=== PATIENT | female | born 1955 | race Caucasian/White ===

== ENCOUNTER 2017-11-29 18:07 | Observation (INO) | payer OTHER ==
[2017-11-29] VITALS (7 sets, daily range): BP systolic 128–144; BP diastolic 76–84
[~2017-11-29] VITALS: Ht 152.4 cm; Wt 93.9 kg
[~2017-11-29 18:07] MED LIST: MECL-124 PO; ONDN4T PO; OXYC-109 PO; PROGEST; PRX10T PO; SCOP1PAT TD; TESTO
--- OUTSIDE RECORDS SUMMARY | 2017-11-29 18:12 | XMS REPORT | Continuity of Care Document ---
Author Author [facility] Organization [facility] Address Unknown Phone Unavailable Allergies There is no data. Medications There is no data. Problems There is no data. Procedures There is no data. Results There is no data. Encounters ACCT No. Visit Date/Time Discharge Status Pt. Type Provider Facility Loc./Unit Complaint [id number] 11/21/2013 21:57:00 11/24/2013 12:15:00 DIS Inpatient
[2017-11-29] MEDS ORDERED: NITROGLYCERIN 0.4 MG SL TABS BTL 25'S SL ONE (18:56)
[2017-11-29] MEDS ORDERED: ONDANSETRON 4 MG/2 ML (SDV) Z0FRAN IVP ONE ×2 (19:15→19:30)
[2017-11-29 19:21] LABS: BASOPHILS # (AUTO) 0.1 10^3/uL (0.0-0.1); BASOPHILS % (AUTO) 0 % (0-10); EOSINOPHILS % (AUTO) 0 % (0-10); HEMATOCRIT 40 % (35-52); HEMOGLOBIN 13.2 G/DL (11.5-16.0); LYMPHOCYTES # (AUTO) 2.4 X 10^3 (1.0-4.0); LYMPHOCYTES % (AUTO) 19 % (12-44); MEAN CORPUSCULAR HEMOGLOBIN 29 PG (25-34); MEAN CORPUSCULAR HGB CONC 33 G/DL (32-36); MEAN CORPUSCULAR VOLUME 89 FL (80-99); MEAN PLATELET VOLUME 10.6 FL (7.4-10.4); MONOCYTES # (AUTO) 0.4 X 10^3 (0.0-1.0); MONOCYTES % (AUTO) 3 % (0-12); NEUTROPHILS # (AUTO) 9.8 X 10^3 (1.8-7.8); NEUTROPHILS % (AUTO) 78 % (42-75); PLATELET COUNT 336 10^3/uL (130-400); RED BLOOD COUNT 4.51 10^6/uL (4.35-5.85); RED CELL DISTRIBUTION WIDTH 14.1 % (10.0-14.5); WHITE BLOOD COUNT 12.6 10^3/uL (4.3-11.0)
--- NOTE | 2017-11-29 19:23 | Diagnostic Imaging Report ---
INDICATION: Chest pain. COMPARISON is made with a prior study from 11/21/2013. FINDINGS: When compared to the prior examination, there appear to be some new patchy infiltrates at the right lung base. The left lung remains clear. There is no effusion. There is no pneumothorax. Heart size appears stable. Pulmonary vascularity is unremarkable. There is no acute osseous abnormality IMPRESSION: 1. Small region of new right base atelectasis or infiltrate. Dictated by: Dictated on workstation # [id number]
[2017-11-29 19:44] LABS: INR 0.9 (0.8-1.4); PROTHROMBIN TIME PATIENT 12.5 SEC (12.2-14.7)
[2017-11-29 19:46] LABS: ALANINE AMINOTRANSFERASE 59 U/L (0-55); ALBUMIN 4.3 GM/DL (3.2-4.5); ALKALINE PHOSPHATASE 91 U/L (40-136); BILIRUBIN,TOTAL 0.6 MG/DL (0.1-1.0); BUN/CREATININE RATIO 23; CALCIUM 9.4 MG/DL (8.5-10.1); CARBON DIOXIDE 26 MMOL/L (21-32); CHLORIDE 105 MMOL/L (98-107); GFR ESTIMATED > 60; GLUCOSE 121 MG/DL (70-105); MAGNESIUM 2.1 MG/DL (1.8-2.4); POTASSIUM 3.6 MMOL/L (3.6-5.0); SODIUM 142 MMOL/L (135-145); TOTAL PROTEIN 7.7 GM/DL (6.4-8.2)
[2017-11-29 19:53] LABS: MYOGLOBIN SERUM 102.7 NG/ML (10.0-92.0)
[2017-11-29] MEDS ORDERED: AZITHROMYCIN INJECTION 500 MG in NS (IVPB) 250 ML IV ONE (20:30)
--- NOTE | 2017-11-29 21:09 | ED Chest Pain ---
General Chief Complaint: Chest Pain Stated Complaint: BODY CHILLS,HIGH BP,LT SHOULDER PAIN,ANXIETY Nursing Triage Note: PT STATES HX OF HYPERTENSION, STATES CHEST PAIN AND NAUSEA. Nursing Sepsis Screen: No Definite Risk Source: patient Exam Limitations: no limitations History of Present Illness Time seen by provider: 18:52 Initial Comments Ms. Hanson presents to the emergency room with complaints of palpitations and chest pressure since about lunchtime. Location is in the left upper chest and she rates the discomfort as 4/10. She has had associated sweats and vomiting. She states she "doesn't feel right". Blood pressure at home was 186/110. She is still hypertensive now. She denies any history of heart problems. She presumed recently that she had influenza has her granddaughter tested positive for influenza A. She had a cough and sore throat in recent weeks treated with steroids, inhalers, and Flonase. Those symptoms seem to have improved. Her pain does not seem to be alleviated or exacerbated by anything in particular. Allergies and Home Medications Allergies Coded Allergies: Penicillins (Unverified Allergy, Mild, 11/28/08) Sulfa (Sulfonamide Antibiotics) (Unverified Allergy, Mild, 11/28/08) amoxicillin (Unverified Allergy, Mild, 11/28/08) aspirin (Unverified Allergy, Mild, 11/28/08) levofloxacin (Unverified Allergy, Mild, 11/28/08) potassium clavulanate (Unverified Allergy, Mild, 11/28/08) Home Medications Paroxetine HCl 10 Mg Tablet, 15 MG PO DAILY, (Reported) The patient takes 1 and 1/2 tabs daily Review of Systems Constitutional: see HPI, diaphoresis EENTM: No Symptoms Reported Respiratory: See HPI Cardiovascular: See HPI Gastrointestinal: See HPI Genitourinary: No Symptoms Reported Musculoskeletal: no symptoms reported Skin: no symptoms reported Psychiatric/Neurological: No Symptoms Reported Endocrine: No Symptoms Reported Hematologic/Lymphatic: No Symptoms Reported Past Xeijctq-Pxfdji-Dtnttg Hx Patient Social History Alcohol Use: Denies Use Recreational Drug Use: No Smoking Status: Former Smoker Type Used: Cigarettes Former Smoker, Quit: Nov 14, 2003 Recent Foreign Travel: No Contact w/Someone Who Travel: No Recent Infectious Disease Expo: No Recent Hopitalizations: No Immunizations Up To Date Date of Influenza Vaccine: Jul 20, 2017 Seasonal Allergies Seasonal Allergies: Yes Surgeries History of Surgeries: Yes (LAMINECTOMY, GANGLION CYST REMOVAL FROM L WRIST) Surgeries: Adenoidectomy, Breast (biopsy), Section, Gallbladder, Hysterectomy, Orthopedic (ganglion cyst, carpal tunnel), Tonsillectomy Respiratory History of Respiratory Disorde: No Cardiovascular History of Cardiac Disorders: No Neurological History of Neurological Disord: No Reproductive System : No Hx Reproductive Disorders: No Sexually Transmitted Disease: No HIV/AIDS: No Genitourinary History of Genitourinary Disor: Yes Genitourinary Disorders: UTI-Chronic Gastrointestinal History of Gastrointestinal Di: Yes Gastrointestinal Disorders: Pancreatitis Musculoskeletal History of Musculoskeletal Dis: No Endocrine History of Endocrine Disorders: No HEENT History of HEENT Disorders: No Cancer History of Cancer: No Psychosocial History of Psychiatric Problem: Yes Behavioral Health Disorders: Anxiety Integumentary History of Skin or Integumenta: No Blood Transfusions History of Blood Disorders: No Adverse Reaction to a Blood Tr: No Family Medical History Significant Family History: Heart Disease, Cancer, Hypertension, Renal Disease , Stroke Family Medial History: Cancer (Breast) 03 MOTHER, Onset:Unknown Congenital heart disease Paternal Grandmother, Onset:Unknown Family history: Hypertension 03 FATHER, Onset:Unknown Kidney disease Paternal Grandmother, Onset:Unknown Stroke 03 MOTHER, Onset:Unknown Physical Exam Vital Signs Vital Sign - Last 12Hours Capillary Refill : Less Than 3 Seconds General Appearance: WD/WN, Mild Distress, Obese HEENT: PERRL/EOMI, Normal ENT Inspection Neck: Normal Inspection Respiratory: Chest Non Tender, Lungs Clear, Normal Breath Sounds, No Accessory Muscle Use, No Respiratory Distress Cardiovascular: Regular Rate, Rhythm, No Edema, No Murmur, Normal Peripheral Pulses Gastrointestinal: Normal Bowel Sounds, Non Tender, Soft Extremity: Normal Inspection, Non Tender, No Calf Tenderness, No Pedal Edema, Other (negative Janine) Neurologic/Psychiatric: Alert, Oriented x3, No Motor/Sensory Deficits, Normal Mood/Affect, 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 Skin: Normal Color, Warm/Dry Progress/Results/Core Measures Results/Orders Lab Results Laboratory Tests Test 11/29/17 18:51 Range/Units White Blood Count 12.6 H 4.3-11.0 10^3/uL Red Blood Count 4.51 4.35-5.85 10^6/uL Hemoglobin 13.2 11.5-16.0 G/DL Hematocrit 40 35-52 % Mean Corpuscular Volume 89 80-99 FL Mean Corpuscular Hemoglobin 29 25-34 PG Mean Corpuscular Hemoglobin Concent 33 32-36 G/DL Red Cell Distribution Width 14.1 10.0-14.5 % Platelet Count 336 130-400 10^3/uL Mean Platelet Volume 10.6 H 7.4-10.4 FL Neutrophils (%) (Auto) 78 H 42-75 % Lymphocytes (%) (Auto) 19 12-44 % Monocytes (%) (Auto) 3 0-12 % Eosinophils (%) (Auto) 0 0-10 % Basophils (%) (Auto) 0 0-10 % Neutrophils # (Auto) 9.8 H 1.8-7.8 X 10^3 Lymphocytes # (Auto) 2.4 1.0-4.0 X 10^3 Monocytes # (Auto) 0.4 0.0-1.0 X 10^3 Eosinophils # (Auto) 0.0 0.0-0.3 10^3/uL Basophils # (Auto) 0.1 0.0-0.1 10^3/uL Prothrombin Time 12.5 12.2-14.7 SEC INR Comment 0.9 0.8-1.4 Activated Partial Thromboplast Time 35 24-35 SEC Sodium Level 142 135-145 MMOL/L Potassium Level 3.6 3.6-5.0 MMOL/L Chloride Level 105 98-107 MMOL/L Carbon Dioxide Level 26 21-32 MMOL/L Anion Gap 11 5-14 MMOL/L Blood Urea Nitrogen 18 7-18 MG/DL Creatinine 0.80 0.60-1.30 MG/DL Estimat Glomerular Filtration Rate > 60 BUN/Creatinine Ratio 23 Glucose Level 121 H 70-105 MG/DL Calcium Level 9.4 8.5-10.1 MG/DL Magnesium Level 2.1 1.8-2.4 MG/DL Total Bilirubin 0.6 0.1-1.0 MG/DL Aspartate Amino Transf (AST/SGOT) 39 H 5-34 U/L Alanine Aminotransferase (ALT/SGPT) 59 H 0-55 U/L Alkaline Phosphatase 91 40-136 U/L Myoglobin 102.7 H 10.0-92.0 NG/ML Troponin I < 0.30 <0.30 NG/ML C-Reactive Protein High Sensitivity 1.56 H 0.00-0.50 MG/DL Total Protein 7.7 6.4-8.2 GM/DL Albumin 4.3 3.2-4.5 GM/DL Micro Results Microbiology 11/29/17 Influenza Types A,B Antigen (EVERT) - Final, Complete My Orders Orders - NELSON GALLAGHER MD Cbc With Automated Diff (11/29/17 18:56) Magnesium (11/29/17 18:56) Chest 1 View, Ap/Pa Only (11/29/17 18:56) Ekg Tracing (11/29/17 18:56) Cardiac Profile 1 (11/29/17 18:56) Comprehensive Metabolic Panel (11/29/17 18:56) Myoglobin Serum (11/29/17 18:56) Protime With Inr (11/29/17 18:56) Partial Thromboplastin Time (11/29/17 18:56) O2 (11/29/17 18:56) Monitor-Rhythm Ecg Trace Only (11/29/17 18:56) Lipid Panel (11/30/17 06:00) Saline Lock/Iv-Start (11/29/17 18:56) Nitroglycerin 0.4 Mg Btl 25's (Nitrostat (11/29/17 18:56) Ondansetron Injection (Zofran Injectio (11/29/17 19:15) Influenza A And B Antigens (11/29/17 19:09) Ondansetron Injection (Zofran Injectio (11/29/17 19:30) Blood Culture (11/29/17 20:17) Azithromycin Injection (Zithromax Inject (11/29/17 20:30) Hs C Reactive Protein (11/29/17 20:18) Aspirin Chewable Tablet (Baby Aspirin Ch (11/29/17 21:15) Medications Given in ED Vital Signs/I&O Vital Sign - Last 12Hours 11/29/17 11/29/17 18:48 18:48 Temp 98.2 Pulse 91 Resp 20 B/P (MAP) 176/93 (120) Pulse Ox 99 O2 Delivery Room Air Room Air Blood Pressure Mean: 120 Progress Note : Progress Note Patients pain and blood pressure improved with nitro. Chest x-ray revealed a possible right lower lobe pneumonia. Blood culture was drawn and Azithromycin was initiated. ASA was given. Vomitng was treated with Zofran. Case was reviewed with Dr. Camarillo who agreed it was most appropriate to admit this patient for cardiac rule out. ECG Initial ECG Impression Date: Nov 29, 2017 Initial ECG Impression Time: 18:50 Initial ECG Rate: 77 Initial ECG Rhythm: Normal Sinus Initial ECG Intervals: Normal Initial ECG Impression: Normal Comment Normal sinus rhythm with no ST elevation or depression. No abnormal intervals or axis deviation. Diagnostic Imaging Diagonstic Imaging: Xray Plain Films/CT/US/NM/MRI: chest Comments Chest x-ray viewed by me and report reviewed. See report below: NAME: CONSUELO HANSON MED REC#: [id number] PT STATUS: REG ER : 1955 PHYSICIAN: NELSON GALLAGHER MD ADMIT DATE: 11/29/17/ER Signed Date of Exam: 11/29/17 CHEST 1 VIEW, AP/PA ONLY INDICATION: Chest pain. COMPARISON is made with a prior study from 11/21/2013. FINDINGS: When compared to the prior examination, there appear to be some new patchy infiltrates at the right lung base. The left lung remains clear. There is no effusion. There is no pneumothorax. Heart size appears stable. Pulmonary vascularity is unremarkable. There is no acute osseous abnormality IMPRESSION: 1. Small region of new right base atelectasis or infiltrate. Dictated by: Dictated on workstation # [id number] Dict: 11/29/171917 Trans: 11/29/171928 Interpreted by: NASRIN NIETO MD Electronically signed by: NASRIN NIETO MD 11/29/171928 Departure Communication (Admissions) Time/Spoke to Admitting Phy: 20:[address] Rush Time/Spoke to Consulting Phy: 21:06 Communication/Consulting Dr. Camarillo Impression Impression: Primary Impression: Chest pain Qualified Codes: R07.9 - Chest pain, unspecified Additional Impressions: Hypertension Qualified Codes: I10 - Essential (primary) hypertension Right lower lobe pneumonia Qualified Codes: J18.1 - Lobar pneumonia, unspecified organism Nausea & vomiting Qualified Codes: R11.2 - Nausea with vomiting, unspecified Disposition: ADMITTED INPATIENT Condition: Improved Admissions Decision to Admit Reason: Admit from ER (General) Decision to Admit/Date: Nov 30, 2017 Time/Decision to Admit Time: 20:30 Departure-Patient Inst. Referrals: LISETTE HEATH MD (PCP/Family) Primary Care Physician NELSON GALLAGHER MD Nov 29, 2017 21:08
[2017-11-29] MEDS ORDERED: ASPIRIN 81 MG CHEW (CHILDREN'S ASA) PO ONE (21:15)
--- OUTSIDE RECORDS SUMMARY | 2017-11-29 21:38 | XMS REPORT | Continuity of Care Document ---
Author Author [facility] Organization [facility] Address Unknown Phone Unavailable Allergies There is no data. Medications There is no data. Problems There is no data. Procedures There is no data. Results Test Result Range Complete blood count (CBC) with automated white blood cell (WBC) differential - 11/29/17 18:51 Blood leukocytes automated count (number/volume) 12.6 10*3/uL 4.3-11.0 Blood erythrocytes automated count (number/volume) 4.51 10*6/uL 4.35-5.85 Venous blood hemoglobin measurement (mass/volume) 13.2 g/dL 11.5-16.0 Blood hematocrit (volume fraction) 40 % 35-52 Automated erythrocyte mean corpuscular volume 89 [foz_us] 80-99 Automated erythrocyte mean corpuscular hemoglobin (mass per erythrocyte) 29 pg 25-34 Automated erythrocyte mean corpuscular hemoglobin concentration measurement ( mass/volume) 33 g/dL 32-36 Automated erythrocyte distribution width ratio 14.1 % 10.0-14.5 Automated blood platelet count (count/volume) 336 10*3/uL 130-400 Automated blood platelet mean volume measurement 10.6 [foz_us] 7.4-10.4 Automated blood neutrophils/100 leukocytes 78 % 42-75 Automated blood lymphocytes/100 leukocytes 19 % 12-44 Blood monocytes/100 leukocytes 3 % 0-12 Automated blood eosinophils/100 leukocytes 0 % 0-10 Automated blood basophils/100 leukocytes 0 % 0-10 Blood neutrophils automated count (number/volume) 9.8 10*3 1.8-7.8 Blood lymphocytes automated count (number/volume) 2.4 10*3 1.0-4.0 Blood monocytes automated count (number/volume) 0.4 10*3 0.0-1.0 Automated eosinophil count 0.0 10*3/uL 0.0-0.3 Automated blood basophil count (count/volume) 0.1 10*3/uL 0.0-0.1 Comprehensive metabolic panel - 11/29/17 18:51 Serum or plasma sodium measurement (moles/volume) 142 mmol/L 135-145 Serum or plasma potassium measurement (moles/volume) 3.6 mmol/L 3.6-5.0 Serum or plasma chloride measurement (moles/volume) 105 mmol/L 98-107 Carbon dioxide 26 mmol/L 21-32 Serum or plasma anion gap determination (moles/volume) 11 mmol/L 5-14 Serum or plasma urea nitrogen measurement (mass/volume) 18 mg/dL 7-18 Serum or plasma creatinine measurement (mass/volume) 0.80 mg/dL 0.60-1.30 Serum or plasma urea nitrogen/creatinine mass ratio 23 NRG Serum or plasma creatinine measurement with calculation of estimated glomerular filtration rate > NRG Serum or plasma glucose measurement (mass/volume) 121 mg/dL 70-105 Serum or plasma calcium measurement (mass/volume) 9.4 mg/dL 8.5-10.1 Serum or plasma total bilirubin measurement (mass/volume) 0.6 mg/dL 0.1-1.0 Serum or plasma alkaline phosphatase measurement (enzymatic activity/volume) 91 U/L 40-136 Serum or plasma aspartate aminotransferase measurement (enzymatic activity/ volume) 39 U/L 5-34 Serum or plasma alanine aminotransferase measurement (enzymatic activity/volume ) 59 U/L 0-55 Serum or plasma protein measurement (mass/volume) 7.7 g/dL 6.4-8.2 Serum or plasma albumin measurement (mass/volume) 4.3 g/dL 3.2-4.5 Magnesium - 11/29/17 18:51 Magnesium 2.1 mg/dL 1.8-2.4 PT panel in platelet poor plasma by coagulation assay - 11/29/17 18:51 Prothrombin time (PT) in platelet poor plasma by coagulation assay 12.5 s 12.2-14.7 INR in platelet poor plasma or blood by coagulation assay 0.9 0.8-1.4 Activated partial thromboplastin time (aPTT) in platelet poor plasma bycoagulation assay - 11/29/17 18:51 Activated partial thromboplastin time (aPTT) in platelet poor plasma bycoagulation assay 35 s 24-35 Serum or plasma troponin i.cardiac measurement (mass/volume) - 11/29/17 18:51 Serum or plasma troponin i.cardiac measurement (mass/volume) < ng/ mL <0.30 Myoglobin, serum - 11/29/17 18:51 Myoglobin, serum 102.7 ng/mL 10.0-92.0 Serum or plasma C reactive protein measurement (mass/volume) - 11/29/17 18:51 Serum or plasma C reactive protein measurement (mass/volume) 1.56 mg /dL 0.00-0.50 Influenza virus A and B antigen detection - 11/29/17 19:15 FLU RESULT NEGATIVE FOR INFLUENZA A AND B ANTIGENS BY IA NRG Encounters ACCT No. Visit Date/Time Discharge Status Pt. Type Provider Facility Loc./Unit Complaint [id number] 11/21/2013 21:57:00 11/24/2013 12:15:00 DIS Inpatient [id number] 11/29/2017 19:27:00 Document Registration
[2017-11-29] MEDS ORDERED: NITROGLYCERIN 0.4 MG SL TABS BTL 25'S SL PRN (22:15)
[2017-11-29] MEDS ORDERED: ONDANSETRON 4 MG/2 ML (SDV) Z0FRAN IV PRN (22:15)
[2017-11-29] MEDS ORDERED: morphine INJ 4 MG/ML 1 ML (VIAL/SYRINGE) IV PRN (22:15)
[2017-11-29] MEDS ORDERED: RT-ALBUTEROL/IPRATROPIUM 3 ML (DUONEB) VIAL INH PRN (23:45)
[2017-11-30] VITALS (11 sets, daily range): BP systolic 121–155; BP diastolic 57–80
[2017-11-30 05:32] LABS: CHOLESTEROL 214 MG/DL (< 200); HDL CHOLESTEROL 46 MG/DL (40-60)
[2017-11-30 06:02] LABS: TRIGLYCERIDES 92 MG/DL (<150); VLDL CHOLESTEROL 18 MG/DL (5-40)
[2017-11-30] MEDS: RT-ALBUTEROL/IPRATROPIUM 3 ML (DUONEB) VIAL INH SCH ×3 (07:10→19:37)
[2017-11-30] MEDS: AZITHROMYCIN 250 MG TAB (ZITHROMAX) PO SCH (09:08)
[2017-11-30] MEDS: ASPIRIN E.C. 325 MG (ECOTRIN) TABLET PO SCH (09:08)
[2017-11-30] MEDS ORDERED: PARO10TA81 PO (09:11)
--- NOTE | 2017-11-30 11:33 | Consultation-Cardiology ---
HPI-Cardiology Cardiology Consultation: Date of Consultation 11/30/17 Date of Admission Attending Physician Isaiah Rush MD Admitting Physician Omar Fung MD Consulting Physician Juliette CAMARILLO MD HPI: Time Seen by Provider: 09:40 Chief Complaint: Chest pain This is a 62-year-old lady who presents with episode of chest pain associated with nausea and vomiting. She was found to have a lung infiltrate and his been treated as pneumonia. She has family history of coronary artery disease. She is a new onset hypertension. She does not know whether she has hypercholesterolemia or not. She denies diabetes. The chest pain was central moderate intensity. Not associated with any significant radiation. No exacerbating factors. However she had mild relief with nitroglycerin. She had associated nausea and vomiting. Review of Systems-Cardiology Review of Systems Constitutional: No As described under HPI, No no symptoms reported, No chills, No fever, No lightheadedness, No malaise, No tiredness, No weight loss, No weight gain, No other Eyes: No As described under HPI, No no symptoms reported, No blindness, No blurred vision, No contact lenses, No drainage, No decreased acuity, No foreign body sensation, No glasses, No inflammation, No pain, No photophobia, No previous injury, No shadows, No tunnel vision, No other, No vision change Ears/Nose/Throat: No As described under HPI, No no symptoms reported, No chronic hearing loss, No epistaxis, No ear discharge, No ear pain, No loose teeth, No mouth pain, No mouth swelling, No nasal drainage, No nose pain, No recent hearing loss, No throat pain, No throat swelling, No ulcerations, No other Respiratory: No no symptoms reported, No As described under HPI, No cough, No orthopnea, No shortness of breath, No SOB with excertion, No SOB at rest, No stridor, No wheezing, No other Cardiovascular: chest pain Gastrointestinal: nausea, vomiting Genitourinary: No no symptoms reported, No As described under HPI, No burning, No dysuria, No discharge, No frequency, No flank pain, No hematuria, No incontinence, No pain, No urgency, No other, No urine frequency changes, No urine coloration changes Musculoskeletal: No no symptoms reported, No As describe under HPI, No back pain, No gout, No joint pain, No joint swelling, No muscle pain, No muscle stiffness, No neck pain, No other Skin: No no symptoms reported, No As described under HPI, No change in color, No change in hair/nails, No dryness, No lesions, No lumps, No rash, No other, No skin related problems, No ulcerations, No rash on exposed areas, No ulcerations on exposed areas Psychiatric/Neurological: No no symptoms reported, No As described under HPI, No anxiety, No depression, No emotional problems, No headache, No numbness, No pre-existing deficit, No seizure, No tingling, No tremors, No weakness, No other , No focal weakness, No syncope Hematologic: No no symptoms reported, No As described under HPI, No anemia, No blood clots, No easy bleeding, No easy bruising, No swollen glands, No other, No bleeding abnormalities [id number] Hx Patient Social History Alcohol Use: Denies Use Recreational Drug Use: No Smoking Status: Former Smoker Type Used: Cigarettes Recent Foreign Travel: No Recent Infectious Disease Expo: No Physical Abuse Screen: No Sexual Abuse: No Immunizations Up To Date Date of Influenza Vaccine: Jul 20, 2017 Past Medical History PMH As described under Assessment. Family Medical History Family History: Cancer (Breast) 03 MOTHER, Onset:Unknown Congenital heart disease Paternal Grandmother, Onset:Unknown Family history: Hypertension 03 FATHER, Onset:Unknown Kidney disease Paternal Grandmother, Onset:Unknown Stroke 03 MOTHER, Onset:Unknown Allergies and Home Medications Allergies Coded Allergies: Penicillins (Unverified Allergy, Mild, 11/28/08) Sulfa (Sulfonamide Antibiotics) (Unverified Allergy, Mild, 11/28/08) amoxicillin (Unverified Allergy, Mild, 11/28/08) aspirin (Unverified Allergy, Mild, 11/28/08) levofloxacin (Unverified Allergy, Mild, 11/28/08) potassium clavulanate (Unverified Allergy, Mild, 11/28/08) Home Medications Paroxetine HCl 10 Mg Tablet, 15 MG PO DAILY, (Reported) The patient takes 1 and 1/2 tabs daily Physical Exam-Cardiology Physical Exam Vital Signs/I&O Vital Sign - Last 12Hours 11/29/17 11/29/17 11/30/17 11/30/17 23:56 23:58 01:00 01:00 Temp 97.1 97.1 Pulse 72 63 63 Resp 18 20 B/P (MAP) 132/84 (100) 121/77 (92) Pulse Ox 97 97 O2 Delivery Room Air Room Air Room Air 11/30/17 11/30/17 11/30/17 11/30/17 02:05 03:01 03:55 03:55 Temp 97.1 98.2 97.6 Pulse 69 74 68 Resp 18 16 18 B/P (MAP) 140/65 (90) 137/75 (95) 126/74 (91) Pulse Ox 94 95 97 O2 Delivery Room Air Room Air Room Air Room Air 11/30/17 11/30/17 11/30/17 11/30/17 07:00 07:15 07:30 07:30 Pulse 70 Pulse Ox 96 O2 Delivery Room Air Room Air Room Air 11/30/17 11/30/17 07:30 11:13 Temp 98.1 Pulse 67 Resp 10 B/P (MAP) 129/79 (96) Pulse Ox 96 O2 Delivery Room Air Room Air Intake and Output 11/30/17 00:00 Intake Total 250 ml Output Total 0 ml Balance 250 ml Capillary Refill : Less Than 3 Seconds Constitutional: No appears stated age, No AAO x 3, No apparent distress, No PERRL, No well-developed, No well-nourished, No other HEENT: No PERRL, No normal ENT inspection, No TMs normal, No pharynx normal, No scleral icterus (R), No scleral icterus (L), No pale conjunctivae (R), No pale conjunctivae (L), No photophobia, No TM abnormal (R), No TM abnormal (L), No pharyngeal erythema, No tonsillar exudate, No other, No discharge, No EOMI, No hearing is well preserved, No hard of hearing, No oral hygience is good, No ulceration, No xanthelasmas are seen Neck: No non-tender, No full range of motion, No supple, No normal inspection, No carotid bruit, No limited range of motion, No lymphadenopathy (R), No lymphadenopathy (L), No tender lateral, No tender midline, No thyromegaly, No other, No carotid pulses are 2 + bilaterally, No with good upstrokes Respiratory: No accessory muscle use, No respiratory distress, No chest tender , No chest expansion is symmetric, No chest is bilaterally symmetric, No lungs clear to percussion, No lungs clear to auscultation, No crackles, No rhonchi, No rales, No stridor, No wheezing, No pleural rub, No other Cardiovascular: regular rate-rhythm, No irregularly irregular, No extra beats, No parasternal heave is noted, No JVD, No edema, No bradycardia, No tachycardia , No point of maximal impulse, No cardiac thrills are palpable, No S1 and S2, No gallop/S3, No gallop/S4, No diastolic murmur, No systolic murmur, No friction rub, No click, No other Gastrointestinal: No tender, No soft, No round, No distended, No pulsatile mass , No organomegaly, No guarding, No rebound, No tenderness, No hernia, No mass, No audible bowel sounds, No abnormal bowel sounds, No abdominal bruits, No spleenomegaly, No other Rectal: deferred Extremities: No normal range of motion, No non-tender, No normal inspection, No pedal edema, No calf tenderness, No normal capillary refill, No pelvis stable , No calf tenderness, No inflammation, No pedal edema, No slow capillary refill , No swelling, No other, No abrasion, No clubbing, No cyanosis, No ecchymosis, No laceration, No no lower extremity edema bilateral, No significant edema, No tenderness, No wound Neurologic/Psychiatric: No c d area supervisor II-XII nml as tested, No no motor/sensory deficits, No alert, No normal mood/affect, No oriented x 3, No abnormal cerebellar tests, No abnormal c d area supervisor II-XII, No abnormal gait, No aphasia, No EOM palsy, No facial droop, No motor weakness, No sensory deficit, No depressed affect, No disoriented x 3, No other, No grossly intact, No power is 5/5 both on sides Skin: No normal color, No warm/dry, No cyanosis, No cool, No diaphoresis, No damp, No ecchymosis, No jaundice, No mottled, No pallor, No rash, No tattoos/ piercings, No ulcerations, No rash on exposed areas, No ulcerations on exposed areas, No other Data Review Labs Laboratory Tests 11/29/17 18:51: White Blood Count 12.6H, Red Blood Count 4.51, Hemoglobin 13.2, Hematocrit 40, Mean Corpuscular Volume 89, Mean Corpuscular Hemoglobin 29, Mean Corpuscular Hemoglobin Concent 33, Red Cell Distribution Width 14.1, Platelet Count 336, Mean Platelet Volume 10.6H, Neutrophils (%) (Auto) 78H, Lymphocytes (%) (Auto) 19, Monocytes (%) (Auto) 3, Eosinophils (%) (Auto) 0, Basophils (%) (Auto) 0, Neutrophils # (Auto) 9.8H, Lymphocytes # (Auto) 2.4, Monocytes # (Auto) 0.4, Eosinophils # (Auto) 0.0, Basophils # (Auto) 0.1, Prothrombin Time 12.5, INR Comment 0.9, Activated Partial Thromboplast Time 35, Sodium Level 142, Potassium Level 3.6, Chloride Level 105, Carbon Dioxide Level 26, Anion Gap 11, Blood Urea Nitrogen 18, Creatinine 0.80, Estimat Glomerular Filtration Rate > 60 , BUN/Creatinine Ratio 23, Glucose Level 121H, Calcium Level 9.4, Magnesium Level 2.1, Total Bilirubin 0.6, Aspartate Amino Transf (AST/SGOT) 39H, Alanine Aminotransferase (ALT/SGPT) 59H, Alkaline Phosphatase 91, Myoglobin 102.7H, Troponin I < 0.30, C-Reactive Protein High Sensitivity 1.56H, Total Protein 7.7 , Albumin 4.3 11/30/17 01:00: Troponin I < 0.30 11/30/17 04:40: Triglycerides Level 92, Cholesterol Level 214H, LDL Cholesterol Direct 151H, VLDL Cholesterol 18, HDL Cholesterol 46 Microbiology 11/29/17 Influenza Types A,B Antigen (EVERT) - Final, Complete ECG Impression ECG Initial ECG Rhythm: Normal Sinus Initial ECG Impression: Nonspecific Changes A/P-Cardiology Assessment/Admission Diagnosis Chest pain, Nausea vomiting, Pneumonia, Hypertension, Hyperlipidemia Plan Chest pain: We'll request echocardiogram and pharmacological nuclear stress test. Nausea vomiting,: Unclear etiology Pneumonia: Defer to primary team. Hypertension: We'll start antihypertensives. Hyperlipidemia: Statin therapy. Thank you for your consultation. Please call me if you have any questions. Molly Camarillo MD, FACP, FACC, FSCAI, FHRS, CCDS Interventional Cardiology Cardiac Electrophysiology Vascular Medicine and Endovascular Interventions Clinical Quality Measures AMI/AHF: ASA po Prior to arrival: No DVT/VTE Risk/Contraindication: Risk Factor Score Per Nursin RFS Level Per Nursing on Admit: 4+=Very High Juliette CAMARILLO MD Nov 30, 2017 11:33
--- NOTE | 2017-11-30 12:13 | History & Physical-Hospitalist ---
HPI History of Present Illness: HPI/Chief Complaint CC: Chest pain HPI: This is a 62-year-old white female of Dr. Fung and Geoff Delcid who presents with episode of chest pain and RLL pneumonia. Azithromycin was initiated empirically considering her multiple medication allergies. She now is not experiencing any chest pain and has not since admission but she does have a stress test scheduled per cardiology to further risk stratify. She reports that she hasn't taking care of herself for a while and is requesting her Paxil to be restarted home medication. Source: patient Exam Limitations: no limitations Date Seen 11/30/17 Time Seen by Provider: 10:30 Attending Physician Isaiah Rush MD PCP Omar Fung MD Referring Physician Date of Admission Nov 29, 2017 at 21:11 Home Medications & Allergies Home Medications Reviewed patient Home Medication Reconciliation Form Allergies Allergies Coded Allergies Penicillins (Unverified Allergy, Mild, 11/28/08) Sulfa (Sulfonamide Antibiotics) (Unverified Allergy, Mild, 11/28/08) amoxicillin (Unverified Allergy, Mild, 11/28/08) aspirin (Unverified Allergy, Mild, 11/28/08) levofloxacin (Unverified Allergy, Mild, 11/28/08) potassium clavulanate (Unverified Allergy, Mild, 11/28/08) Past [id number] Hx Patient Social History Marrital Status: (3 yrs ago of cancer) Alcohol Use: Denies Use Recreational Drug Use: No Smoking Status: Former Smoker Former Smoker, Quit: Nov 14, 2003 Type Used: Cigarettes Physical Abuse Screen: No Sexual Abuse: No Recent Foreign Travel: No Contact w/other who traveled: No Recent Hopitalizations: No Recent Infectious Disease Expo: No Immunizations Up To Date Date of Influenza Vaccine: Jul 20, 2017 Seasonal Allergies Seasonal Allergies: Yes Surgeries Yes (LAMINECTOMY, GANGLION CYST REMOVAL FROM L WRIST, , hysterectomy) Adenoidectomy, Breast (biopsy), Section, Gallbladder, Hysterectomy, Orthopedic (ganglion cyst, carpal tunnel), Tonsillectomy Respiratory No Cardiovascular Yes High Cholesterol, Hypertension Neurological No Reproductive System : No Hx Reproductive Disorders: No Sexually Transmitted Disease: No HIV/AIDS: No Genitourinary Yes UTI-Chronic Gastrointestinal Yes Pancreatitis Musculoskeletal No Endocrine History of Endocrine Disorders: No HEENT History of HEENT Disorders: No Cancer No Psychosocial History of Psychiatric Problem: Yes Behavioral Health Disorders: Anxiety Integumentary History of Skin or Integumenta: No Blood Transfusions History of Blood Disorders: No Adverse Reaction to a Blood Tr: No Family Medical History Significant Family History: Heart Disease, Cancer, Hypertension, Renal Disease , Stroke Family Hx: Cancer (Breast) 03 MOTHER, Onset:Unknown Congenital heart disease Paternal Grandmother, Onset:Unknown Family history: Hypertension 03 FATHER, Onset:Unknown Kidney disease Paternal Grandmother, Onset:Unknown Stroke 03 MOTHER, Onset:Unknown Review of Systems Constitutional: see HPI, weakness EENTM: no symptoms reported Respiratory: cough Cardiovascular: chest pain Gastrointestinal: no symptoms reported Genitourinary: no symptoms reported Musculoskeletal: no symptoms reported Skin: no symptoms reported Psychiatric/Neurological: No Symptoms Reported All Other Systems Reviewed Negative Unless Noted: Yes Physical Exam Physical Exam Vital Signs Vital Sign - Last 12Hours Capillary Refill : Less Than 3 Seconds General Appearance: No Apparent Distress, WD/WN, Obese Eyes: Bilateral Eye Normal Inspection, Bilateral Eye PERRL HEENT: PERRL/EOMI, Normal ENT Inspection, Pharynx Normal Neck: Full Range of Motion, Normal Inspection, Non Tender, Supple, Carotid Bruit Respiratory: Chest Non Tender, Lungs Clear, Normal Breath Sounds, No Accessory Muscle Use, No Respiratory Distress Cardiovascular: Regular Rate, Rhythm, No Edema, No Gallop, No JVD, No Murmur, Normal Peripheral Pulses Gastrointestinal: Normal Bowel Sounds, No Organomegaly, No Pulsatile Mass, Non Tender, Soft Back: Normal Inspection, No CVA Tenderness, No Vertebral Tenderness Extremity: Normal Capillary Refill, Normal Inspection, Normal Range of Motion, Non Tender, No Calf Tenderness, No Pedal Edema Neurologic/Psychiatric: Alert, Oriented x3, No Motor/Sensory Deficits, Normal Mood/Affect Skin: Normal Color, Warm/Dry Lymphatic: No Adenopathy Results Results/Procedures Lab Laboratory Tests 11/29/17 18:51 Assessment/Plan Admission Diagnosis Assessment: Chest pain Small right lower lobe pneumonia without hypoxia elevated white count or fever Depression Assessment and Plan Plan: Azithromycin Cardiac stress test per cardiology Clinical Quality Measures AMI/AHF: ASA po Prior to arrival: No DVT/VTE Risk/Contraindication: Risk Factor Score Per Nursin RFS Level Per Nursing on Admit: 4+=Very High JUSTICE ANGULO DO Nov 30, 2017 12:13
[2017-11-30] MEDS ORDERED: PARoxetine 10 MG (PAXIL) TAB PO ONE (12:42)
[2017-11-30] MEDS ORDERED: REGADENOSON 0.4 MG/5 ML SYR (LEXISCAN) IV ONE ×2 (13:43→14:15)
[2017-11-30] MEDS ORDERED: ACETAMINOPHEN 325 MG TABLET/CAPLET (TYLENOL) PO PRN (17:00)
[2017-11-30] MEDS ORDERED: ATORVASTATIN 40 MG (LIPITOR) TABLET PO SCH (21:00)
[2017-12-01] VITALS: BP 128/68
[2017-12-01 04:30] VITALS: BP 119/73
[2017-12-01] MEDS: RT-ALBUTEROL/IPRATROPIUM 3 ML (DUONEB) VIAL INH SCH ×2 (06:36→10:53)
[2017-12-01 08:15] VITALS: BP 120/72
[2017-12-01] MEDS: ASPIRIN E.C. 325 MG (ECOTRIN) TABLET PO SCH (08:16)
[2017-12-01] MEDS: AZITHROMYCIN 250 MG TAB (ZITHROMAX) PO SCH (08:17)
[2017-12-01] MEDS ORDERED: PARoxetine 10 MG (PAXIL) TAB PO SCH (09:00)
[2017-12-01] MEDS ORDERED: lisINopril 5 MG (PRINIVIL) TABLET PO SCH (09:00)
--- NOTE | 2017-12-01 11:34 | STRESS TEST ---
DATE OF SERVICE: 11/30/2017 PHARMACOLOGICAL NUCLEAR STRESS ATTENDING PHYSICIAN: Dr. Isaiah Rush. PERFORMING PHYSICIAN: Dr. Molly Camarillo. DIAGNOSES: Chest pain, shortness of breath, pneumonia. PROCEDURE DETAILS: The patient was brought to the stress lab after informed consent was taken. Stress test was performed according to the Lexiscan protocol. A 0.4 mg of IV Lexiscan was given. Low grade exercise was performed. Baseline EKG showed sinus rhythm at 88 BPM. Blood pressure was 128/57 mmHg. Maximum heart rate was 125 BPM and blood pressure was 152/73 mmHg. 10.22 mCi of Myoview were given for rest imaging and 30.4 mCi of Myoview were given for stress imaging. TID was 1.02, EF 74%. Normal perfusion during rest and stress. CONCLUSION: 1. Pharmacological stress test, negative for ischemia. 2. Normal LV function with no wall motion abnormalities. 3. Normal perfusion during rest and stress. Job ID: [id number] DocumentID: [id number] Dictated Date: 12/01/2017 10:02:36 Product Support Engineer Date: 12/01/2017 10:56:30 Dictated By: BREN CAMARILLO MD
[2017-12-01] MEDS ORDERED: AZIT250T12 PO (11:36)
--- NOTE | 2017-12-01 11:39 | Discharge Summary-Hospitalist ---
Diagnosis/Chief Complaint Date of Admission Nov 29, 2017 at 21:11 Date of Discharge Discharge Date: Dec 01, 2017 Admission Diagnosis Assessment: Chest pain Small right lower lobe pneumonia without hypoxia elevated white count or fever Depression Discharge Diagnosis Evelyn is feeling good this morning. She was NPO following yesterdays stress test in case intervention was necessary but was allowed to eat this afternoon. She is not having any CP or palpitations. She does complain of being more worn out than usual but attributes this to her BP being normalized. ROS: Const- Feels improved from yesterday and ready to go home Resp- + non- productive cough, no SOB Cardiac- No CP. Denies palpitations GI- no abdominal pain. denies diarrhea. +BM MSK- no joint swelling or pain Psych- + depression and anxiety. PE: General- NAD. Comfortably lying in bed HEENT- non-traumatic, normocephalic, PERRLA Cardio- RRR, no murmurs rubs or gallops appreciated Resp- Even chest movement, CTAB GI- NTTP, no distention, +BS ++obese Ext- no LE swelling, FROM of all extremities Neuro- AOx3 Assessment: Chest pain Small right lower lobe pneumonia without hypoxia elevated white count or fever Depression Plan: D/C to home today. Continue azithromycin therapy and use OTC expectorant prn She will need f/u with cardiology in near future Discharge Summary Discharge Physical Examination Allergies: Coded Allergies: Penicillins (Unverified Allergy, Mild, 11/28/08) Sulfa (Sulfonamide Antibiotics) (Unverified Allergy, Mild, 11/28/08) amoxicillin (Unverified Allergy, Mild, 11/28/08) aspirin (Unverified Allergy, Mild, 11/28/08) levofloxacin (Unverified Allergy, Mild, 11/28/08) potassium clavulanate (Unverified Allergy, Mild, 11/28/08) Vitals & I&Os Vital Signs Date Time Temp Pulse Resp B/P (MAP) Pulse Ox O2 Delivery O2 Flow Rate FiO2 12/01/17 11:48 Room Air 12/01/17 11:48 98.9 79 18 137/67 (90) 94 Hospital Course Hospital course: patient had a brief hospital course. She was placed on abx and Nebs and Cardiology assessed her and performed EST. She was found to be stable for DC and will f/u with Dr Fung's office to work on optimizing her medical management and decreased further complications. Labs (last 24 hrs) Microbiology 11/29/17 Blood Culture - Preliminary, Resulted No growth 11/29/17 Influenza Types A,B Antigen (EVERT) - Final, Complete Discharge Home Medications: Active Scripts Active Lipitor (Atorvastatin Calcium) 40 Mg Tablet 40 Mg PO HS 60 Days Lisinopril 5 Mg Tablet 5 Mg PO DAILY 60 Days Aspirin EC (Aspirin) 325 Mg Tablet. 325 Mg PO DAILY 90 Days Azithromycin 250 Mg Tablet 250 Mg PO DAILY 2 Days Reported Paxil (Paroxetine HCl) 10 Mg Tablet 15 Mg PO DAILY The patient takes 1 and 1/2 tabs daily Instructions to patient/family Please see electronic discharge instructions given to patient. Clinical Quality Measures AMI/AHF: ASA po Prior to arrival: No DVT/VTE Risk/Contraindication: Risk Factor Score Per Nursin RFS Level Per Nursing on Admit: 4+=Very High JUSTICE ANGULO DO Dec 01, 2017 11:38
[2017-12-01 11:48] VITALS: BP 137/67
[2017-12-01] MEDS ORDERED: ATOR40TA PO (12:22)
[2017-12-01] MEDS ORDERED: LISI-556 PO (12:22)
[2017-12-01] MEDS ORDERED: ASPI325T32 PO (12:22)
[2017-12-01 13:45] VITALS: BP 137/67
--- NOTE | 2017-12-01 16:28 | Cardiology Progress Note ---
Cardiology SOAP Progress Note Subjective: no further chest pain. Objective: I&O/Vital Signs Vital Sign - Last 12Hours 12/01/17 12/01/17 12/01/17 12/01/17 04:30 06:36 07:00 08:15 Temp 98.1 97.7 Pulse 68 64 64 Resp 18 16 B/P (MAP) 119/73 (88) 120/72 (88) Pulse Ox 98 92 O2 Delivery Room Air Room Air Room Air 12/01/17 12/01/17 12/01/17 12/01/17 08:30 08:30 10:53 11:48 Temp 98.9 Pulse 79 Resp 18 B/P (MAP) 137/67 (90) Pulse Ox 92 95 94 O2 Delivery Room Air Room Air Room Air Room Air 12/01/17 12/01/17 11:48 13:45 Pulse 79 Resp 18 B/P (MAP) 137/67 Pulse Ox 94 O2 Delivery Room Air Room Air Intake and Output 12/01/17 00:00 Intake Total 450 ml Output Total 800 ml Balance -350 ml Weight (Pounds): 207 Weight (Ounces): 0.4 Weight (Calculated Kilograms): [id number] Constitutional: No appears stated age, No AAO x 3, No apparent distress, No PERRL, No well-developed, No well-nourished, No other Respiratory: No accessory muscle use, No respiratory distress, No chest tender , No chest expansion is symmetric, No chest is bilaterally symmetric, No lungs clear to percussion, No lungs clear to auscultation, No crackles, No rhonchi, No rales, No stridor, No wheezing, No pleural rub, No other Cardiovascular: regular rate-rhythm, No irregularly irregular, No extra beats, No parasternal heave is noted, No JVD, No edema, No bradycardia, No tachycardia , No point of maximal impulse, No cardiac thrills are palpable, No S1 and S2, No gallop/S3, No gallop/S4, No diastolic murmur, No systolic murmur, No friction rub, No click, No other Gastrointestional: No tender, No soft, No round, No distended, No pulsatile mass, No organomegaly, No guarding, No rebound, No tenderness, No hernia, No mass, No audible bowel sounds, No abnormal bowel sounds, No abdominal bruits, No spleenomegaly, No other Extremities: No normal range of motion, No non-tender, No normal inspection, No pedal edema, No calf tenderness, No normal capillary refill, No pelvis stable , No calf tenderness, No inflammation, No pedal edema, No slow capillary refill , No swelling, No other, No abrasion, No clubbing, No cyanosis, No ecchymosis, No laceration, No no lower extremity edema bilateral, No significant edema, No tenderness, No wound Neurologic/Psychiatric: No field sales agent II-XII nml as tested, No no motor/sensory deficits, No alert, No normal mood/affect, No oriented x 3, No abnormal cerebellar tests, No abnormal field sales agent II-XII, No abnormal gait, No aphasia, No EOM palsy, No facial droop, No motor weakness, No sensory deficit, No depressed affect, No disoriented x 3, No other, No grossly intact, No power is 5/5 both on sides Skin: No normal color, No warm/dry, No cyanosis, No cool, No diaphoresis, No damp, No ecchymosis, No jaundice, No mottled, No pallor, No rash, No tattoos/ piercings, No ulcerations, No rash on exposed areas, No ulcerations on exposed areas, No other Results/Procedures: Labs Microbiology 11/29/17 Blood Culture - Preliminary, Resulted No growth 11/29/17 Influenza Types A,B Antigen (EVERT) - Final, Complete A/P: Assessment/Dx: Chest pain, Nausea vomiting, Pneumonia, Hypertension, Hyperlipidemia Plan: Chest pain: acute coronary syndrome ruled out with negative serial troponin. Negative EKG. Echocardiogram was normal. Pharmacological stress test did not show any rest or stress perfusion defect. Nausea vomiting,: Unclear etiology Pneumonia: Defer to primary team. Hypertension: We'll start antihypertensives. Hyperlipidemia: Statin therapy. I can follow-up as an outpatient if required. Thank you for your consultation. Please call me if you have any questions. Molly Camarillo MD, FACP, FACC, FSCAI, FHRS, CCDS Interventional Cardiology Cardiac Electrophysiology Vascular Medicine and Endovascular Interventions Clinical Quality Measures AMI/AHF: ASA po Prior to arrival: Juliette Mccarty MD Dec 01, 2017 16:28
== END 2017-12-01 11:37 | disposition home or self-care (01) ==
LOC: EDUNIT# 18:07 → ER 18:09 → ICU 21:11 → UNDOADMOB 21:11 → ICU 21:40 → UNDODISOB 12-01 13:45
PROVIDERS: ADMIT Internal Medicine; ATTEND Internal Medicine
DX: R07.9 Chest pain, unspecified (principal); J18.9 Pneumonia, unspecified organism; R09.02 Hypoxemia; F32.9 Major depressive disorder, single episode, unspecified; Z88.0 Allergy status to penicillin; Z88.2 Allergy status to sulfonamides; Z88.1 Allergy status to other antibiotic agents; Z88.8 Allergy status to other drugs, medicaments and biological substances; Z88.6 Allergy status to analgesic agent; Z87.891 Personal history of nicotine dependence; I10 Essential (primary) hypertension; E78.00 Pure hypercholesterolemia, unspecified; F41.9 Anxiety disorder, unspecified; Z82.49 Family history of ischemic heart disease and other diseases of the circulatory system; R11.2 Nausea with vomiting, unspecified; Z79.899 Other long term (current) drug therapy
CPT/HCPCS: 36415; 71045; 78452; 80053; 80061; 83735; 83874; 84484; 85025; 85610; 85730; 86141; 87040; 87804; 93005; 93017; 93041; 93306; 94640; 94760; 96365; 96375

== ENCOUNTER → 2017-12-16 | Outpatient (CLI) | payer OTHER ==
[~2017-12-16] MED LIST changes: +ASPI325T32 PO; +ATOR40TA PO; +AZIT250T12 PO; +LISI-556 PO; +PARO10TA81 PO
--- NOTE | 2017-12-16 12:51 | Diagnostic Imaging Report ---
Indication: Routine screening. Comparison is made with prior mammogram from 04/25/2007. The current study was also evaluated with a Computer Aided Detection (CAD) system. Scattered fibroglandular densities are identified bilaterally. No dominant mass or malignant appearing microcalcifications are seen. The axilla are unremarkable. Impression: BI-RADS category one No mammographic features suspicious for malignancy are identified. ACR BI-RADS Category 1: Negative. Result letter will be mailed to the patient. Note: At least 10% of breast cancer is not imaged by mammography. Dictated by: Dictated on workstation # [id number]
== END ==
LOC: RAD 09:53
PROVIDERS: ATTEND Internal Medicine
DX: Z12.31 Encounter for screening mammogram for malignant neoplasm of breast (principal)
CPT/HCPCS: 77067

== ENCOUNTER 2018-01-27 05:37 | Outpatient (CLI) | payer OTHER ==
[~2018-01-27] VITALS: Ht 152.4 cm; Wt 86.2 kg
== END 2018-01-27 15:42 ==
LOC: PREOP 05:37
PROVIDERS: ATTEND Specialist
DX: Z01.818 Encounter for other preprocedural examination (principal); H25.89 Other age-related cataract

== ENCOUNTER 2018-02-03 06:21 | Day surgery (SDC) | payer OTHER ==
[~2018-02-03] VITALS: Ht 152.4 cm; Wt 86.2 kg
[2018-02-03 06:27] VITALS: BP 154/85
[2018-02-03] MEDS ORDERED: VANCOMYCIN/BSS (COMPOUNDED) 10 MG/ML SYR OP ONE (06:30)
[2018-02-03] MEDS ORDERED: EPINEPHrine INJECTION 1 MG/ML AMP INJ ONE (06:30)
[2018-02-03] MEDS ORDERED: TIMOLOL MALEATE 0.5% 5 ML (TIMOPTIC) BTL OU PRN (06:30)
[2018-02-03] MEDS ORDERED: POVIDONE (BETADINE) OPHTH SOLN 5% 30 ML OP ONE (06:30)
[2018-02-03] MEDS: TETRACAINE 0.5% OPHTH SOLN 4 ML BTL (SINGLE DOSE ONLY) OU PRN ×4 (06:41→07:03)
[2018-02-03] MEDS ORDERED: MIDAZOLAM 2 MG/2 ML (VERSED) VIAL ONE (06:51)
[2018-02-03] MEDS: PHENYLEPHRINE 10% OPHTH (NEO-SYN) 5 ML BTL OU SCH ×3 (06:52→07:03)
[2018-02-03] MEDS: CYCLOPENTOLATE 1% (CYCLOGYL) 2 ML DROPS OP SCH ×3 (06:52→07:03)
--- NOTE | 2018-02-03 07:12 | Ophthalmologist Pre-Op Note ---
Pre-Operative Progress Note H&P Reviewed The H&P was reviewed, patient examined and no changes noted. Date H&P Reviewed: Feb 03, 2018 Time H&P Reviewed: 07:12 Pre-Op Dx Cataract, Left Eye JOSE LUNA MD Feb 03, 2018 07:12
[2018-02-03] MEDS ORDERED: LIDOCAINE PF 1% 2 ML VIAL (OR ONLY) IR PRN (07:15)
--- NOTE | 2018-02-03 07:39 | Ophthalmology Operative Report ---
Cataract removal/placement IOL PREOPERATIVE DIAGNOSIS: Cataract Left Eye POSTOPERATIVE DIAGNOSIS: Cataract Left Eye PROCEDURE: Cataract removal and placement of posterior chamber implant, left eye SURGEON: Abhinav Luna ANESTHESIA: Topical with sedation COMPLICATIONS: None ESTIMATED BLOOD LOSS: Minimal DESCRIPTION OF PROCEDURE: After proper informed consent was obtained, the patient, a 62 female, was taken to the Operating Room and the left eye was anesthetized with tetracaine. They left eye was then prepped and draped in the usual manner. A wire lid speculum was placed. A paracentesis was made at the left hand position. Preservative free lidocaine was injected into the anterior chamber followed by viscoelastic. A clear corneal incision was made in the temporal position. A capsulorrhexis was preformed and the central nuclear and cortical material were removed. The posterior capsule was polished and Girma 19.0 SN6CWS IOL was placed into the capsular bag. The residual viscoelastic was aspirated and balanced saline solution was injected into the anterior chamber. 1.0 ml of Vancomycin (10mg/ 1.0ml) was injected into the anterior chamber. The would was checked and found to be water tight. The patient tolerated the procedure well without complications. ABHINAV LUNA MD Feb 03, 2018 07:39
[2018-02-03 07:50] VITALS: BP 140/74
== END 2018-02-03 07:52 | disposition home or self-care (01) ==
LOC: SDC 06:21
PROVIDERS: ATTEND Specialist
DX: H26.9 Unspecified cataract (principal); I10 Essential (primary) hypertension; F41.9 Anxiety disorder, unspecified; Z87.891 Personal history of nicotine dependence; Z79.899 Other long term (current) drug therapy

== ENCOUNTER 2018-02-20 05:31 | Outpatient (CLI) | payer OTHER ==
[~2018-02-20] VITALS: Ht 152.4 cm; Wt 85.3 kg
[2018-02-20] MEDS ORDERED: LOSA25TA21 PO (11:48)
== END 2018-02-20 11:53 ==
LOC: PREOP 05:31
PROVIDERS: ATTEND Specialist
DX: Z01.818 Encounter for other preprocedural examination (principal); H25.89 Other age-related cataract

== ENCOUNTER 2018-02-24 05:57 | Day surgery (SDC) | payer OTHER ==
[~2018-02-24] VITALS: Ht 152.4 cm; Wt 85.3 kg
[~2018-02-24 05:57] MED LIST changes: +LOSA25TA21 PO
[2018-02-24] MEDS ORDERED: EPINEPHrine INJECTION 1 MG/ML AMP INJ ONE (06:15)
[2018-02-24] MEDS ORDERED: VANCOMYCIN/BSS (COMPOUNDED) 10 MG/ML SYR OP ONE (06:15)
[2018-02-24] MEDS ORDERED: POVIDONE (BETADINE) OPHTH SOLN 5% 30 ML OP ONE (06:15)
[2018-02-24] MEDS ORDERED: LIDOCAINE PF 1% 2 ML AMP IR PRN (06:15)
[2018-02-24] MEDS ORDERED: TIMOLOL MALEATE 0.5% 5 ML (TIMOPTIC) BTL OU PRN (06:15)
[2018-02-24] MEDS: TETRACAINE 0.5% OPHTH SOLN 4 ML BTL (SINGLE DOSE ONLY) OU PRN ×4 (06:21→06:44)
[2018-02-24] MEDS: CYCLOPENTOLATE 1% (CYCLOGYL) 2 ML DROPS OP SCH ×3 (06:32→06:44)
[2018-02-24] MEDS: PHENYLEPHRINE 10% OPHTH (NEO-SYN) 5 ML BTL OU SCH ×3 (06:32→06:44)
[2018-02-24 06:34] VITALS: BP 121/65
[2018-02-24] MEDS ORDERED: MIDAZOLAM 2 MG/2 ML (VERSED) VIAL ONE (06:42)
--- NOTE | 2018-02-24 07:12 | Ophthalmologist Pre-Op Note ---
Pre-Operative Progress Note H&P Reviewed The H&P was reviewed, patient examined and no changes noted. Date H&P Reviewed: Feb 24, 2018 Time H&P Reviewed: 07:12 Pre-Op Dx Cataract, Right Eye JOSE LUNA MD Feb 24, 2018 07:12
--- NOTE | 2018-02-24 07:39 | Ophthalmology Operative Report ---
Cataract removal/placement IOL PREOPERATIVE DIAGNOSIS: Cataract Right Eye POSTOPERATIVE DIAGNOSIS: Cataract Right Eye PROCEDURE: Cataract removal and placement of posterior chamber implant, right eye SURGEON: Abhinav Luna ANESTHESIA: Topical with sedation COMPLICATIONS: None ESTIMATED BLOOD LOSS: Minimal DESCRIPTION OF PROCEDURE: After proper informed consent was obtained, the patient, a 62 female, was taken to the Operating Room and the right eye was anesthetized with tetracaine. They right eye was then prepped and draped in the usual manner. A wire lid speculum was placed. A paracentesis was made at the left hand position. Preservative free lidocaine was injected into the anterior chamber followed by viscoelastic. A clear corneal incision was made in the temporal position. A capsulorrhexis was preformed and the central nuclear and cortical material were removed. The posterior capsule was polished and Girma 17.5 SN6CWS IOL was placed into the capsular bag. The residual viscoelastic was aspirated and balanced saline solution was injected into the anterior chamber. 1.0 mg of Vancomycin (10mg/ 1.0ml) was injected into the anterior chamber. The would was checked and found to be water tight. The patient tolerated the procedure well without complications. ABHINAV LUNA MD Feb 24, 2018 07:39
[2018-02-24 07:40] VITALS: BP 124/68
--- NOTE | 2018-02-24 07:40 | Ophthalmologist Pre-Op Note ---
Pre-Operative Progress Note H&P Reviewed The H&P was reviewed, patient examined and no changes noted. Date H&P Reviewed: Feb 24, 2018 Time H&P Reviewed: 07:40 Pre-Op Dx Cataract, Left Eye JOSE LUNA MD Feb 24, 2018 07:40
--- NOTE | 2018-02-24 08:05 | Ophthalmology Operative Report ---
Cataract removal/placement IOL PREOPERATIVE DIAGNOSIS: Cataract Left Eye POSTOPERATIVE DIAGNOSIS: Cataract Left Eye PROCEDURE: Cataract removal and placement of posterior chamber implant, left eye SURGEON: Abhinav Luna ANESTHESIA: Topical with sedation COMPLICATIONS: None ESTIMATED BLOOD LOSS: Minimal DESCRIPTION OF PROCEDURE: After proper informed consent was obtained, the patient, a 62 female, was taken to the Operating Room and the left eye was anesthetized with tetracaine. They left eye was then prepped and draped in the usual manner. A wire lid speculum was placed. A paracentesis was made at the left hand position. Preservative free lidocaine was injected into the anterior chamber followed by viscoelastic. A clear corneal incision was made in the temporal position. A capsulorrhexis was preformed and the central nuclear and cortical material were removed. The posterior capsule was polished and Girma 24.5 SN6CWS IOL was placed into the capsular bag. The residual viscoelastic was aspirated and balanced saline solution was injected into the anterior chamber. 1.0 mg of Vancomycin (10mg/ 1.0ml) was injected into the anterior chamber. The would was checked and found to be water tight. The patient tolerated the procedure well without complications. ABHINAV LUNA MD Feb 24, 2018 08:05
--- NOTE | 2018-02-24 11:34 | Anesthesia-General Post-Op ---
MAC Patient Condition Mental Status/LOC: Same as Preop Cardiovascular: Satisfactory Nausea/Vomiting: Absent Respiratory: Satisfactory Pain: Controlled Complications: Absent Post Op Complications Complications None Follow Up Care/Instructions Patient Instructions None needed. Anesthesiology Discharge Order Discharge Order Patient is doing well, no complaints, stable vital signs, no apparent adverse anesthesia problems. No complications reported per nursing. HONORIO ZARATE CRNA Feb 24, 2018 11:34
--- OUTSIDE RECORDS SUMMARY | 2018-02-26 03:52 | XMS REPORT | Continuity of Care Document ---
Author Author [facility] Organization [facility] Address Unknown Phone Unavailable Allergies Active Description Code Type Severity Reaction Onset Reported/Identified Relationship to Patient Clinical Status Yes amoxicillin [id number] Drug Allergy Mild N/A 11/28/2008 Yes aspirin [id number] Drug Allergy Mild N/A 11/28/2008 Yes levofloxacin [id number] Drug Allergy Mild N/A 11/28/2008 Yes Penicillins [id number] Drug Allergy Mild N/A 11/28/2008 Yes potassium clavulanate [id number] Drug Allergy Mild N/A 11/28/2008 Yes Sulfa (Sulfonamide Antibiotics) [id number] Drug Allergy Mild N/A 2008 Medications There is no data. Problems Date Dx Coded Attending Type Code Diagnosis Diagnosed By 12/01/2017 YESSICA RODGERS MD, Ot E78.00 PURE HYPERCHOLESTEROLEMIA, UNSPECIFIED 12/01/2017 YESSICA RODGERS MD Ot F32.9 MAJOR DEPRESSIVE DISORDER, SINGLE EPISOD 12/01/2017 YESSICA RODGERS MD Ot F41.9 ANXIETY DISORDER, UNSPECIFIED 12/01/2017 YESSICA RODGERS MD Ot I10 ESSENTIAL (PRIMARY) HYPERTENSION 12/01/2017 YESSICA RODGERS MD Ot J18.9 PNEUMONIA, UNSPECIFIED ORGANISM 12/01/2017 YESSICA RODGERS MD Ot R07.9 CHEST PAIN, UNSPECIFIED 12/01/2017 YESSICA RODGERS MD Ot R09.02 HYPOXEMIA 12/01/2017 YESSICA RODGERS MD Ot R11.2 NAUSEA WITH VOMITING, UNSPECIFIED 12/01/2017 YESSICA RODGERS MD Ot 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31 ENCNTR SCREEN MAMMOGRAM FOR MALIGNANT NE 01/30/2018 JOSE LUNA MD Ot H25.89 OTHER AGE-RELATED CATARACT 01/30/2018 JOSE LUNA MD Ot Z01.818 ENCOUNTER FOR OTHER PREPROCEDURAL EXAMIN 02/03/2018 JOSE LUNA MD Ot F41.9 ANXIETY DISORDER, UNSPECIFIED 02/03/2018 JOSE LUNA MD Ot H26.9 UNSPECIFIED CATARACT 02/03/2018 JOSE LUNA MD L Ot I10 ESSENTIAL (PRIMARY) HYPERTENSION 02/03/2018 JOSE LUNA MD L Ot 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 02/03/2018 JOSE LUNA MD Ot Z87.891 PERSONAL HISTORY OF NICOTINE DEPENDENCE 02/06/2018 JOSE LUNA MD Ot F41.9 ANXIETY DISORDER, UNSPECIFIED 02/06/2018 JOSE LUNA MD Ot H26.9 UNSPECIFIED CATARACT 02/06/2018 JOSE LUNA MD L Ot I10 ESSENTIAL (PRIMARY) HYPERTENSION 02/06/2018 JOSE LUNA MD Ot Z79.899 OTHER CUSTODIAL (CURRENT) DRUG THERAPY 02/06/2018 JOSE LUNA MD Ot Z87.891 PERSONAL HISTORY OF NICOTINE DEPENDENCE 02/07/2018 JOSE LUNA MD Ot F41.9 ANXIETY DISORDER, UNSPECIFIED 02/07/2018 JOSE LUNA MD Ot H26.9 UNSPECIFIED CATARACT 02/07/2018 JOSE LUNA MD L Ot I10 ESSENTIAL (PRIMARY) HYPERTENSION 02/07/2018 JOSE LUNA MD L Ot Z79.899 OTHER CUSTODIAL (CURRENT) DRUG THERAPY 02/07/2018 JOSE LUNA MD Ot Z87.891 PERSONAL HISTORY OF NICOTINE DEPENDENCE 02/09/2018 JOSE LUNA MD, Ot F41.9 ANXIETY DISORDER, UNSPECIFIED 02/09/2018 JOSE LUNA MD, Ot H26.9 UNSPECIFIED CATARACT 02/09/2018 JOSE LUNA MD, Ot I10 ESSENTIAL (PRIMARY) HYPERTENSION 02/09/2018 JOSE LUNA MD, Ot 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 Results Test [...] INFLUENZA A AND B ANTIGENS BY IA [facility] Bacterial blood culture - 11/29/17 20:22 Bacterial blood culture NG [facility] Bacterial blood culture - 11/29/17 20:42 Bacterial blood culture NG [facility] Serum or plasma troponin i.cardiac measurement (mass/volume) - 11/30/17 01:00 Serum or plasma troponin i.cardiac measurement (mass/volume) < ng/ mL <0.30 Lipid 1996 panel - 11/30/17 04:40 Serum or plasma triglyceride measurement (mass/volume) 92 mg/dL <150 Serum or plasma cholesterol measurement (mass/volume) 214 mg/dL < 200 Serum or plasma cholesterol in HDL measurement (mass/volume) 46 mg/ dL 40-60 Cholesterol in LDL [mass/volume] in serum or plasma by direct assay 151 mg/dL 1-129 Serum or plasma cholesterol in VLDL measurement (mass/volume) 18 mg/ dL 5-40 Encounters ACCT No. Visit Date/Time Discharge Status Pt. Type Provider Facility Loc./Unit Complaint [id number] 02/24/2018 05:57:00 02/24/2018 07:50:00 DIS Outpatient JOSE LUNA MD [facility] SD CATARACT RIGHT EYE [id number] 02/20/2018 05:31:00 02/20/2018 11:53:00 DIS Outpatient JOSE LUNA MD [facility] PREOP CATARACT RIGHT EYE [id number] 02/03/2018 07:30:00 02/03/2018 23:59:59 CLS Preadmit JOSE LUNA MD [facility] CATARACT LEFT EYE [id number] 02/03/2018 06:21:00 02/03/2018 07:52:00 DIS Outpatient JOSE LUNA MD [facility] CATARACT LEFT EYE [id number] 01/27/2018 05:37:00 01/27/2018 15:42:00 DIS Outpatient JOSE LUNA MD [facility] PREOP CATARACT [id number] 12/16/2017 09:53:00 12/16/2017 23:59:59 CLS Outpatient LISETTE HEATH MD [facility] RAD SCREENING [id number] 11/29/2017 21:40:00 12/01/2017 11:37:00 DIS Outpatient VISHAL HAMPTON, YESSICA Mendez [facility] ICU CHEST PAIN, RLL PNEUMONIA ,HTN,N/V [id number] 11/21/2013 21:57:00 11/24/2013 12:15:00 DIS Inpatient
== END 2018-02-24 07:50 | disposition home or self-care (01) ==
LOC: SDC 05:57
PROVIDERS: ATTEND Specialist
DX: H26.9 Unspecified cataract (principal); I10 Essential (primary) hypertension; F41.9 Anxiety disorder, unspecified; Z87.891 Personal history of nicotine dependence; Z79.899 Other long term (current) drug therapy

== ENCOUNTER → 2019-04-23 | Outpatient (CLI) | payer MEDICARE, OTHER ==
[~2019-04-23] MED LIST changes: -LOSA25TA21 PO; +LOSA25TA41 PO
--- NOTE | 2019-04-23 20:34 | Diagnostic Imaging Report ---
PROCEDURE: MRI left joint lower extremity without contrast. TECHNIQUE: Multiplanar, multisequence non contrast-enhanced MRI of the left lower extremity was accomplished. INDICATION: Knee pain. There are no previous studies available for comparison. FINDINGS: There is a sizable defect involving the root of the medial meniscus. This would be consistent with a large tear. There is some increased signal within the substance of the lateral meniscus. This signal abnormality does not communicate with the articular surface, however, consequently felt to be more likely due to degenerative disease than to a meniscus tear. The anterior and posterior cruciate ligaments, quadriceps and infrapatellar tendons are intact. There is no evidence for a tear of the medial collateral ligament but there is edema/inflammation about the medial collateral ligament as it courses by the proximal tibia. There is also diffusely increased signal throughout the medial aspect of the proximal tibia on the coronal STIR series. A much smaller area of increased signal is also seen along the medial most aspect of the medial femoral condyle. I suspect these signal abnormalities are related to bone edema from a recent contusion and/or microfracture of the proximal tibia. The fibular collateral ligament, the biceps femoris tendon and iliotibial band are intact. There is no sign of a tear of either the medial or lateral retinaculum. There is only mild degenerative disease of the knee joint. This primarily involves the medial compartment. There is a small joint effusion present. There is no sign of a Melo's cyst. IMPRESSION: 1. There is a large tear of the root of the medial meniscus. The lateral meniscus appears to be intact. 2. There is no evidence for a tear of the medial collateral ligament, but there is considerable edema/inflammation of the soft tissues about the MCL as it courses by the medial aspect of the proximal tibia. There also appears to be a prominent area of bone edema involving the medial aspect of the proximal tibia and a very small area of bone edema in the medial most portion of the medial femoral condyle. These findings may be related to a recent contusion and/or microfracture. 3. The knee joint itself is fairly well-maintained. 4. There is a small joint effusion present. Dictated by: Dictated on workstation # [id number]
== END ==
LOC: RAD 16:03
PROVIDERS: ATTEND Orthopaedic Surgery
DX: M23.204 Derangement of unspecified medial meniscus due to old tear or injury, left knee (principal); M89.9 Disorder of bone, unspecified
CPT/HCPCS: 73721

== ENCOUNTER → 2021-04-14 | Outpatient (CLI) | payer MEDICARE, OTHER ==
[~2021-04-14] MED LIST changes: -LISI-556 PO; +LISI-729 PO
--- NOTE | 2021-04-14 15:17 | Diagnostic Imaging Report ---
INDICATION: Routine screening. COMPARISON: 12/16/2017. TECHNIQUE: 2D and 3D bilateral screening mammography was performed with CAD. FINDINGS: Scattered fibroglandular densities are identified bilaterally. The overall parenchymal pattern appears stable. No spiculated mass or malignant appearing microcalcifications are seen. There are benign calcifications present. The axillae are unremarkable. IMPRESSION: No mammographic features suspicious for malignancy are identified. ACR BI-RADS Category 2: Benign findings. Result letter will be mailed to the patient. Note: At least 10% of breast cancer is not imaged by mammography. Dictated by: Dictated on workstation # [id number]
== END ==
LOC: RAD 08:45
PROVIDERS: ATTEND Physician Assistant
DX: Z12.31 Encounter for screening mammogram for malignant neoplasm of breast (principal)
CPT/HCPCS: 77063; 77067

== ENCOUNTER 2021-09-30 05:53 | Outpatient (CLI) | payer MEDICARE, OTHER ==
[~2021-09-30] VITALS: Ht 152.4 cm; Wt 99.0 kg
[2021-09-30] MEDS ORDERED: PARO20TA5 PO (08:47)
== END 2021-09-30 12:14 | disposition home or self-care (01) ==
LOC: PREOP 05:53
PROVIDERS: ATTEND Internal Medicine
DX: Z01.818 Encounter for other preprocedural examination (principal)

== ENCOUNTER 2021-10-02 09:45 | Day surgery (SDC) | payer MEDICARE, OTHER ==
--- NOTE | 2021-09-29 14:52 | HISTORY AND PHYSICAL ---
DATE OF SERVICE: COLONOSCOPY HISTORY AND PHYSICAL HISTORY: The patient is a 66-year-old white female being referred by Dr. Fung for screening colonoscopy. She is deemed to be of higher than average risk as her father was diagnosed with colon cancer, although later in life in his early 80s. She denies bright red blood per rectum, melena, change in bowel habits or change in weight. Denies abdominal pain. PAST MEDICAL HISTORY: Significant for hypertension for which she takes losartan. She had gallstone related pancreatitis, underwent cholecystectomy in 2013. She reports no past cardiovascular or pulmonary history. PAST SURGICAL HISTORY: She has had 3 sections, the aforementioned cholecystectomy, bilateral carpal tunnel repair, replacement disk in the cervical spine, T and A as a child and total abdominal hysterectomy and bilateral salpingo-oophorectomy for menorrhagia and uterine fibroids. SOCIAL HISTORY: She is a retired nurse from [employer]. She has a 40-pack year smoking history, but quit 15 years ago. She reports no significant alcohol consumption. FAMILY HISTORY: Father had colon cancer in his early 80s, at the age of 85. She has 3 siblings, alive and well. She believes that have all had colonoscopies without significant findings. REVIEW OF SYSTEMS: CONSTITUTIONAL: Denies night sweats, chills, fever, change in weight. She is fully COVID vaccinated. PULMONARY: Denies shortness of breath, cough or wheezing. Denies orthopnea, PND, pedal edema or dyspnea on exertion. GASTROINTESTINAL: As noted in the HPI. PHYSICAL EXAMINATION: GENERAL: Reveals a pleasant white female, appears to be in no acute distress. VITAL SIGNS: Weight 218 pounds, blood pressure 142/80. HEENT: Unremarkable. No evidence for pallor. Sclerae nonicteric. CHEST: Clear to auscultation. CARDIOVASCULAR: Reveals a regular rate and rhythm without murmur, S3 or S4. ABDOMEN: Soft, supple without mass, organomegaly or tenderness. EXTREMITIES: Reveal no cyanosis, clubbing or edema. ASSESSMENT AND PLAN: The patient is set up this Tuesday for screening colonoscopy with positive family history for colon cancer, index case being her father diagnosed in his 80s. Prep instructions with Suprep kit were given, questions were answered and electronic medical record was reviewed. Job ID: [id number] DocumentID: [id number] Dictated Date: 09/28/2021 17:30:03 Family Therapist Date: 09/28/2021 17:46:05 Dictated By: BRAULIO WHYTE MD
[~2021-10-02] VITALS: Ht 152.4 cm; Wt 99.0 kg
[~2021-10-02 09:45] MED LIST changes: -LISI-729 PO; +LISI5TAB20 PO; +PARO20TA5 PO
[2021-10-02] MEDS ORDERED: LACTATED RINGERS 1,000 ML IV STA (09:46)
[2021-10-02] MEDS ORDERED: LACTATED RINGERS 1,000 ML IV ONE (09:49)
[2021-10-02] MEDS ORDERED: LIDOCAINE JELLY 2% 6 ML SYRINGE MM PRN (10:00)
[2021-10-02 10:20] VITALS: BP 121/57
--- NOTE | 2021-10-02 10:21 | Pre-Op Note & Conscious Sedat ---
Pre-Operative Progress Note H&P Reviewed The H&P was reviewed, patient examined and no changes noted. Date H&P Reviewed: Oct 02, 2021 Time H&P Reviewed: 10:21 Conscious Sedation Pre-Proced ASA Score 2 For ASA 3 and 4: Consider anesthesia and medical clearance. Also, for patients with a history of failed moderate sedation consider anesthesia. Airway Lungs Heart ASA score ASA 1: a normal healthy patient ASA 2: a patient with a mild systemic disease (mid diabetes, controlled hypertension, obesity ASA 3: a patient with a severe systemic disease that limits activity (angina, COPD, prior Myocardial infarction) ASA 4: a patient with an incapacitating disease that is a constant threat to life (CHF, renal failure) ASA 5: a moribund patient not expected to survive 24 hrs. (ruptured aneurysm) ASA 6: a declared brain- patient whose organs are being harvested. For emergent operations, add the letter E after the classification Mallampati Classification Grade 2 Sedation Plan Analgesia, Amnesia, Plan communicated to team members, Discussed options with patient/fam, Discussed risks with patient/fam The patient is an appropriate candidate to undergo the planned procedure, sedation, and anesthesia. The patient immediately re-assessed prior to indication. BRAULIO WHYTE MD Oct 02, 2021 10:21
[2021-10-02] MEDS ORDERED: PROPOFOL INJECTION 50 ML IV ONE ×2 (10:54→11:12)
[2021-10-02] MEDS ORDERED: ATROPINE INJ 0.4 MG/ML SDV ONE (11:12)
[2021-10-02 11:30] VITALS: BP 134/64
[2021-10-02 11:35] VITALS: BP 135/77
[2021-10-02 11:40] VITALS: BP 129/61
[2021-10-02 11:50] VITALS: BP 129/61
[2021-10-02 12:08] VITALS: BP 129/61
--- NOTE | 2021-10-02 12:34 | Anesthesia-General Post-Op ---
MAC Patient Condition Mental Status/LOC: Same as Preop Cardiovascular: Satisfactory Nausea/Vomiting: Absent Respiratory: Satisfactory Pain: Controlled Complications: Absent Post Op Complications Complications None Follow Up Care/Instructions Patient Instructions None needed. Anesthesiology Discharge Order Discharge Order Patient is doing well, no complaints, stable vital signs, no apparent adverse anesthesia problems. No complications reported per nursing. JUAN CAPUTO CRNA Oct 02, 2021 12:34
--- NOTE | 2021-10-02 17:55 | OPERATIVE REPORT ---
DATE OF SERVICE: COLONOSCOPY SUMMARY INDICATION FOR THE PROCEDURE: Screening. DESCRIPTION OF PROCEDURE: The patient was placed in the left lateral decubitus position. Prior to undergoing colonoscopy, a digital rectal evaluation was performed. Anal sphincter tone was normal and the perianal reflexes intact. No abnormalities were noted on digital inspection of the anal canal or distal rectal vault. The colonoscope was then inserted into the rectum and under direct visualization advanced to the cecum. The cecum was identified by identification of the ileocecal valve and cecal strap. Photographic documentation was obtained. Quality of the prep was good. FINDINGS: No evidence for internal or external hemorrhoids and the rectum was unremarkable. Several small sigmoid diverticulum were present without evidence for diverticulitis. One 5 mm adenomatous appearing polyp was noted in the mid sigmoid colon. It was photographed and biopsied and ablated with no subsequent blood loss. The descending colon and splenic flexure was unremarkable. There was another questionable sessile polyp in the proximal transverse colon. It was biopsied and ablated with minimal blood loss. The hepatic flexure, ascending colon, and cecum were unremarkable. ASSESSMENT: Two polyps were removed today via hot forceps, one from the mid sigmoid colon and the other from the proximal transverse colon as noted above. We will await histopathology report before making future surveillance colonoscopic recommendation. I thank you for the referral of this pleasant lady. Job ID: [id number] DocumentID: [id number] Dictated Date: 10/02/2021 12:04:19 House Father Date: 10/02/2021 17:54:37 Dictated By: BRAULIO WHYTE MD
== END 2021-10-02 12:18 | disposition home or self-care (01) ==
LOC: ENDO 09:45
PROVIDERS: ATTEND Internal Medicine
DX: Z12.11 Encounter for screening for malignant neoplasm of colon (principal); D12.5 Benign neoplasm of sigmoid colon; D12.3 Benign neoplasm of transverse colon; K57.30 Diverticulosis of large intestine without perforation or abscess without bleeding; I10 Essential (primary) hypertension; E66.01 Morbid (severe) obesity due to excess calories; F41.9 Anxiety disorder, unspecified; Z90.49 Acquired absence of other specified parts of digestive tract; Z68.41 Body mass index [BMI] 40.0-44.9, adult; Z79.899 Other long term (current) drug therapy; Z90.710 Acquired absence of both cervix and uterus; Z87.891 Personal history of nicotine dependence; Z80.0 Family history of malignant neoplasm of digestive organs
CPT/HCPCS: 88305

== ENCOUNTER → 2023-06-20 | Outpatient (CLI) | payer MEDICARE, OTHER ==
[~2023-06-20] MED LIST changes: +PARO-134 PO; -PARO10TA81 PO
--- NOTE | 2023-06-20 14:37 | Diagnostic Imaging Report ---
INDICATION: Routine screening. Comparison is made with prior mammogram from 04/14/2021 and 12/16/2017. 2-D and 3-D bilateral screening mammography was performed with CAD. Scattered fibroglandular densities are identified bilaterally. The parenchymal pattern is stable. Small nodular densities in both breasts are stable. There are benign calcifications. No mass or malignant-appearing microcalcifications are seen. Axillae are unremarkable. IMPRESSION: No mammographic features suspicious for malignancy are identified. ACR BI-RADS Category 2: Benign findings. Result letter will be mailed to the patient. Note: At least 10% of breast cancer is not imaged by mammography. BI-RADS Category 2 Dictated by: Dictated on workstation # [id number]
== END ==
LOC: RAD 09:45
PROVIDERS: ATTEND Internal Medicine
DX: Z12.31 Encounter for screening mammogram for malignant neoplasm of breast (principal); Z00.00 Encounter for general adult medical examination without abnormal findings; I10 Essential (primary) hypertension; E78.2 Mixed hyperlipidemia; J30.2 Other seasonal allergic rhinitis; F33.0 Major depressive disorder, recurrent, mild
CPT/HCPCS: 77063; 77067